=== PATIENT | female | born 2000 | race Caucasian/White ===

== ENCOUNTER 2021-07-25 15:23 | Emergency (ER) | payer SELFPAY ==
[2021-07-25 16:36] VITALS: BMI 20.2
[2021-07-25 22:19] VITALS: BP 105/61; PULSE 98; TEMP 100.8
== END 2021-07-25 21:28 | disposition home or self-care (01) ==
LOC: JER 15:23
DX: B34.9 Viral infection, unspecified (principal)
CPT/HCPCS: 71046-TC-FY; 87804; 87807; 99284-25; C9803; U0003; U0005

== ENCOUNTER 2021-11-02 10:52 | Emergency (ER) | payer OTHER ==
[2021-11-02 11:08] VITALS: BP 105/68; PULSE 67; TEMP 97.9; BMI 35.5
[2021-11-02 12:45] LABS: HEMATOCRIT 39.3 % (32.4-45.2); HEMOGLOBIN 13.3 GM/dL (10.7-15.3); MCH 29.9 pg (25.7-33.7); MCHC 33.8 g/dl (32.0-36.0); MEAN CELL VOLUME 88.5 fl (80-96); MEAN PLT VOLUME 7.7 fl (7.5-11.1); PLATELET COUNT 424 10^3/uL (134-434); RBC 4.44 M/mm3 (3.60-5.2); RDW 13.4 % (11.6-15.6); WHITE BLOOD COUNT 8.2 K/mm3 (4.0-10.0)
[2021-11-02 12:47] LABS: URINE APPEARANCE CLEAR; URINE BILIRUBIN NEGATIVE (NEGATIVE); URINE COLOR YELLOW; URINE GLUCOSE (UA) NEGATIVE (NEGATIVE); URINE KETONE TRACE (NEGATIVE); URINE LEUK ESTERASE NEGATIVE (NEGATIVE); URINE NITRITE NEGATIVE (NEGATIVE); URINE PROTEIN NEGATIVE (NEGATIVE); URINE UROBILINOGEN 0.2 mg/dL (0.2-1.0)
[2021-11-02 13:05] LABS: CALCIUM 9.1 mg/dL (8.5-10.1)
[2021-11-02 13:06] LABS: ALBUMIN 3.8 g/dl (3.4-5.0); BLOOD UREA NITROGEN 7.4 mg/dL (7-18)
[2021-11-02 13:09] LABS: CREATININE 0.6 mg/dL (0.55-1.3)
[2021-11-02 13:10] LABS: BILIRUBIN,TOTAL 0.5 mg/dL (0.2-1); TOT PROT 7.9 g/dl (6.4-8.2)
== END 2021-11-02 17:18 | disposition home or self-care (01) ==
LOC: JER 10:52 → JERFT 10:52
DX: O20.0 Threatened abortion (principal); O26.891 Other specified pregnancy related conditions, first trimester; Z3A.01 Less than 8 weeks gestation of pregnancy
CPT/HCPCS: 36415; 76817-TC; 80053; 81003; 84702; 85027; 86850; 86900; 86901; 87086; 99284-25

== ENCOUNTER 2022-02-05 00:36 | Emergency (ER) | payer OTHER ==
[2022-02-05 00:57] VITALS: BP 97/62; PULSE 82; TEMP 98.3; BMI 31.2
[2022-02-05] MEDS ORDERED: LIDOCAINE 5% TOPICAL PATCH TP ONE (02:15)
[2022-02-05] MEDS ORDERED: LIDOCAINE 5% TOPICAL PATCH ONE (02:18)
[2022-02-05 02:45] LABS: BASO % 0.3 % (0-2.0); EOS % 0.3 % (0-4.5); HEMATOCRIT 34.2 % (32.4-45.2); HEMOGLOBIN 11.9 GM/dL (10.7-15.3); MCH 30.6 pg (25.7-33.7); MCHC 34.9 g/dl (32.0-36.0); MEAN CELL VOLUME 87.7 fl (80-96); MEAN PLT VOLUME 8.2 fl (7.5-11.1); MONO % 7.9 % (3.8-10.2); NEUT % 77.5 % (42.8-82.8); PLATELET COUNT 374 10^3/uL (134-434); RBC 3.89 M/mm3 (3.60-5.2); RDW 13.8 % (11.6-15.6); WHITE BLOOD COUNT 9.7 K/mm3 (4.0-10.0)
[2022-02-05 03:07] LABS: BLOOD UREA NITROGEN 4.5 mg/dL (7-18)
[2022-02-05 03:10] LABS: CREATININE 0.5 mg/dL (0.55-1.3)
[2022-02-05 03:12] LABS: BILIRUBIN,TOTAL 0.9 mg/dL (0.2-1); TOT PROT 6.8 g/dl (6.4-8.2)
[2022-02-05 04:45] LABS: PH,URINE 7.5 (5.0-8.0); URINE APPEARANCE CLOUDY; URINE BILIRUBIN NEGATIVE (NEGATIVE); URINE COLOR DK YELLOW; URINE GLUCOSE (UA) NEGATIVE (NEGATIVE); URINE KETONE NEGATIVE (NEGATIVE); URINE LEUK ESTERASE NEGATIVE (NEGATIVE); URINE NITRITE NEGATIVE (NEGATIVE); URINE PROTEIN NEGATIVE (NEGATIVE)
[2022-02-05] MEDS ORDERED: LIDOCAINE PATCH REMOVAL MC SCH (22:00)
== END 2022-02-05 05:19 | disposition home or self-care (01) ==
LOC: JER 00:36
DX: R10.9 Unspecified abdominal pain (principal)
CPT/HCPCS: 36415; 76705-TC; 76801-TC; 80053; 81003; 83690; 85025; 87086; 99284-25

== ENCOUNTER 2022-05-26 03:25 | Inpatient (IN) | payer OTHER ==
[2022-05-26] MEDS ORDERED: AMPICILLIN SODIUM 2 GM VIAL ONE (04:01)
[2022-05-26] MEDS ORDERED: CITRIC ACID/SODIUM CITRATE 30 ML UNIT-DOSE CUP PO ONE (04:04)
[2022-05-26] MEDS ORDERED: ELECTROLYTE-148 SOLN 500 ML IV ONE (04:04)
[2022-05-26] MEDS ORDERED: AMPICILLIN - 2 GM in SODIUM CHLORIDE 100 ML IVPB ONE (04:15)
[2022-05-26] MEDS ORDERED: OXYTOCIN 30 UNITS in 0.9% NS 30 UNIT/500 ML INFUS.BAG IVPB ONE (04:38)
[2022-05-26] MEDS ORDERED: ceFAZolin SODIUM 1 GM VIAL ONE (04:41)
[2022-05-26] MEDS ORDERED: KETOROLAC TROMETHAMINE 30 MG/1 ML VIAL ONE (04:41)
[2022-05-26] MEDS ORDERED: ONDANSETRON 4 MG/2 ML VIAL ONE (04:41)
[2022-05-26] MEDS ORDERED: DEXAMETHASONE SOD PHOSPHATE 4 MG/1 ML VIAL ONE (04:41)
[2022-05-26] MEDS ORDERED: morphine SULFATE (PF) 1 MG/2 ML SYRINGE ONE (04:41)
[2022-05-26 04:48] LABS: BASO % 0.7 % (0-2.0); EOS % 0.3 % (0-4.5); HEMATOCRIT 37.7 % (32.4-45.2); HEMOGLOBIN 12.9 GM/dL (10.7-15.3); LYMPH % 21.6 % (8-40); MCH 29.8 pg (25.7-33.7); MCHC 34.1 g/dl (32.0-36.0); MEAN CELL VOLUME 87.3 fl (80-96); MEAN PLT VOLUME 10.2 fl (7.5-11.1); MONO % 6.9 % (3.8-10.2); NEUT % 70.5 % (42.8-82.8); PLATELET COUNT 242 10^3/uL (134-434); RBC 4.32 M/mm3 (3.60-5.2); RDW 13.8 % (11.6-15.6); WHITE BLOOD COUNT 12.4 K/mm3 (4.0-10.0)
[2022-05-26 04:49] LABS: INR 0.91 (0.83-1.09); PROTHROMBIN TIME (PATIENT) 10.4 SEC (9.7-13.0)
[2022-05-26 04:52] LABS: ACTIVATED PTT 32.3 SECONDS (25.2-36.5)
[2022-05-26] MEDS ORDERED: ACETAMINOPHEN 325 MG TABLET (FP) PO PRN (04:55)
[2022-05-26] MEDS ORDERED: ONDANSETRON 4 MG/2 ML VIAL IVPUSH PRN (04:55)
[2022-05-26 05:01] LABS: BLOOD UREA NITROGEN 7.9 mg/dL (7-18)
[2022-05-26 05:04] LABS: CREATININE 0.8 mg/dL (0.55-1.3)
[2022-05-26] MEDS ORDERED: OXYTOCIN 10 UNITS/ML VIAL ONE ×3 (05:23→05:24)
[2022-05-26 06:11] VITALS: BMI 43.7
[2022-05-26] MEDS ORDERED: OXYTOCIN 20 UNITS in 0.9% NS 20 UNIT/1,000 ML INFUS.BAG IV ONE (06:32)
[2022-05-26] MEDS: OXYTOCIN 20 UNITS in 0.9% NS 20 UNIT/1,000 ML INFUS.BAG IV SCH ×2 (06:35→15:16)
[2022-05-26] MEDS ORDERED: METHYLERGONOVINE MALEATE 0.2 MG/1 ML AMP IM PRN (06:55)
[2022-05-26] MEDS: ELECTROLYTE-148 SOLN 1,000 ML IV SCH (06:57)
[2022-05-26] MEDS ORDERED: IBUPROFEN 800 MG/8 ML IJ IVPB PRN (06:59)
[2022-05-26 07:53] LABS: CORD BASE EXCESS -3.1 mmol/L (0-2); CORD HCO3 24.4 mmHg (20-29); CORD PCO2 52.9 mmHg (30-78); CORD pH 7.281 (7.14-7.44)
[2022-05-26 07:55] LABS: CORD HCO3 23.6 mmHg (20-29); CORD pH 7.235 (7.14-7.44)
[2022-05-26 12:39] LABS: HIV INTERPRETATION NEGATIVE (NEGATIVE)
[2022-05-26] MEDS: CEFAZOLIN 1 GM in DEXTROSE 5%-WATER - 50 ML IVPB SCH ×2 (14:01→17:55)
[2022-05-26] MEDS ORDERED: oxyCODONE HCL 5 MG TABLET PO PRN ×2 (18:55)
[2022-05-26] MEDS: ENOXAPARIN NA (PORCINE) 40 MG/0.4 ML DISP.SYRIN SQ SCH (21:13)
[2022-05-27] MEDS: CEFAZOLIN 1 GM in DEXTROSE 5%-WATER - 50 ML IVPB SCH ×3 (01:10→18:34)
[2022-05-27] MEDS: ELECTROLYTE-148 SOLN 1,000 ML IV SCH (05:20)
[2022-05-27] MEDS ORDERED: BISACODYL 10 MG SUPP.RECT RC PRN (06:55)
[2022-05-27] MEDS: FERROUS SO4 325 MG TABLET (FP) PO SCH ×2 (09:38→22:54)
[2022-05-27] MEDS: ENOXAPARIN NA (PORCINE) 40 MG/0.4 ML DISP.SYRIN SQ SCH (09:38)
[2022-05-27] MEDS: PRENATAL VITAMINS W/ FOLIC ACID TABLET (FP) PO SCH (09:38)
[2022-05-27 10:14] LABS: BASO % 0.4 % (0-2.0); EOS % 0.4 % (0-4.5); HEMATOCRIT 35.1 % (32.4-45.2); HEMOGLOBIN 11.7 GM/dL (10.7-15.3); LYMPH % 18.1 % (8-40); MCH 29.1 pg (25.7-33.7); MCHC 33.2 g/dl (32.0-36.0); MEAN CELL VOLUME 87.8 fl (80-96); MEAN PLT VOLUME 10.1 fl (7.5-11.1); MONO % 5.1 % (3.8-10.2); PLATELET COUNT 222 10^3/uL (134-434); RDW 14.2 % (11.6-15.6); WHITE BLOOD COUNT 11.3 K/mm3 (4.0-10.0)
[2022-05-27] MEDS: IBUPROFEN 600 MG TABLET (FP) PO PRN ×2 (16:08→22:54)
[2022-05-27] MEDS: OXYTOCIN 20 UNITS in 0.9% NS 20 UNIT/1,000 ML INFUS.BAG IV SCH (21:16)
[2022-05-27] MEDS: SIMETHICONE 80 MG TAB.CHEW (FP) PO PRN (22:54)
[2022-05-27] MEDS: SENNOSIDES/DOCUSATE COMBO (SENNA PLUS) TABLET (UD) PO PRN (22:54)
[2022-05-28] MEDS: IBUPROFEN 600 MG TABLET (FP) PO PRN ×3 (09:18→21:36)
[2022-05-28] MEDS: ENOXAPARIN NA (PORCINE) 40 MG/0.4 ML DISP.SYRIN SQ SCH (09:18)
[2022-05-28] MEDS: PRENATAL VITAMINS W/ FOLIC ACID TABLET (FP) PO SCH (09:19)
[2022-05-28] MEDS: FERROUS SO4 325 MG TABLET (FP) PO SCH ×2 (09:28→21:36)
[2022-05-28] MEDS: SIMETHICONE 80 MG TAB.CHEW (FP) PO PRN ×2 (15:55→21:37)
[2022-05-28] MEDS: LABETALOL HCL 200 MG TABLET (FP) PO SCH ×2 (16:26→21:36)
[2022-05-28 18:19] LABS: ALBUMIN 1.8 g/dl (3.4-5.0); BLOOD UREA NITROGEN 11.2 mg/dL (7-18); CALCIUM 8.7 mg/dL (8.5-10.1)
[2022-05-28 18:22] LABS: CREATININE 0.6 mg/dL (0.55-1.3)
[2022-05-28 18:24] LABS: BILIRUBIN,TOTAL 0.3 mg/dL (0.2-1); TOT PROT 5.4 g/dl (6.4-8.2)
[2022-05-29] MEDS: IBUPROFEN 600 MG TABLET (FP) PO PRN ×2 (05:17→21:19)
[2022-05-29] MEDS: SIMETHICONE 80 MG TAB.CHEW (FP) PO PRN ×2 (05:17→20:34)
[2022-05-29 08:09] LABS: BASO % 0.5 % (0-2.0); EOS % 4.3 % (0-4.5); HEMATOCRIT 32.9 % (32.4-45.2); HEMOGLOBIN 10.9 GM/dL (10.7-15.3); LYMPH % 21.8 % (8-40); MCH 29.5 pg (25.7-33.7); MCHC 33.3 g/dl (32.0-36.0); MEAN CELL VOLUME 88.8 fl (80-96); MEAN PLT VOLUME 8.7 fl (7.5-11.1); NEUT % 67.4 % (42.8-82.8); PLATELET COUNT 312 10^3/uL (134-434); RDW 14.6 % (11.6-15.6); WHITE BLOOD COUNT 11.2 K/mm3 (4.0-10.0)
[2022-05-29] MEDS: ACETAMINOPHEN 325 MG TABLET (FP) PO PRN ×2 (08:10→20:30)
[2022-05-29] MEDS: LABETALOL HCL 100 MG TABLET (FP) PO SCH ×2 (09:44→21:13)
[2022-05-29] MEDS: FERROUS SO4 325 MG TABLET (FP) PO SCH ×2 (09:45→21:13)
[2022-05-29] MEDS: ENOXAPARIN NA (PORCINE) 40 MG/0.4 ML DISP.SYRIN SQ SCH (09:45)
[2022-05-29] MEDS: PRENATAL VITAMINS W/ FOLIC ACID TABLET (FP) PO SCH (09:45)
[2022-05-29] MEDS: SENNOSIDES/DOCUSATE COMBO (SENNA PLUS) TABLET (UD) PO PRN (20:34)
[2022-05-30] MEDS: PRENATAL VITAMINS W/ FOLIC ACID TABLET (FP) PO SCH (09:05)
[2022-05-30] MEDS: SIMETHICONE 80 MG TAB.CHEW (FP) PO PRN (09:05)
[2022-05-30] MEDS: ENOXAPARIN NA (PORCINE) 40 MG/0.4 ML DISP.SYRIN SQ SCH (09:05)
[2022-05-30] MEDS: LABETALOL HCL 100 MG TABLET (FP) PO SCH (09:06)
[2022-05-30] MEDS: ACETAMINOPHEN 325 MG TABLET (FP) PO PRN (09:06)
[2022-05-30] MEDS: FERROUS SO4 325 MG TABLET (FP) PO SCH (09:07)
[2022-05-30 09:10] VITALS: BP 141/93; PULSE 82; RESP 18; TEMP 98.6
== END 2022-05-30 13:05 | disposition home or self-care (01) | DRG 540 ==
LOC: JDEL 03:25 → JLDR 03:50 → J3W 08:35
PROVIDERS: ADMIT Obstetrics & Gynecology; ATTEND Obstetrics & Gynecology
PROC: 10D00Z1 Extraction of Products of Conception, Low, Open Approach (ICD-10-PCS; principal; 2022-05-26)
DX: O60.14X0 Preterm labor third trimester with preterm delivery third trimester, not applicable or unspecified (principal); O99.214 Obesity complicating childbirth; E66.01 Morbid (severe) obesity due to excess calories; Z3A.36 36 weeks gestation of pregnancy; Z37.0 Single live birth
CPT/HCPCS: 36415; 36600; 59025; 80048; 80053; 82803; 85025; 85610; 85730; 86780; 86850; 86900; 86901; 87389; 88307-TC; C9803-CS; U0003; U0005

== ENCOUNTER 2022-06-03 23:57 | Emergency (ER) | payer OTHER ==
[2022-06-04 00:20] VITALS: BP 144/93; PULSE 80; RESP 17; TEMP 98.4; BMI 41.4
[2022-06-04 01:39] LABS: EPI CELLS >36 /uL (0-25.1); HYALINE CASTS 1 /uL (0-3.1); PH,URINE 6.5 (5.0-8.0); URINE APPEARANCE CLOUDY; URINE BACTERIA 1667 /uL (0-1359); URINE BILIRUBIN NEGATIVE (NEGATIVE); URINE COLOR YELLOW; URINE GLUCOSE (UA) NEGATIVE (NEGATIVE); URINE KETONE TRACE (NEGATIVE); URINE LEUK ESTERASE 1+ (NEGATIVE); URINE NITRITE NEGATIVE (NEGATIVE); URINE PROTEIN 2+ (NEGATIVE); URINE RBC 41 /uL (0-23.9); URINE WBC 286 /uL (0-25.8)
== END 2022-06-04 02:15 | disposition home or self-care (01) ==
LOC: JER 23:57
DX: R30.0 Dysuria (principal); Z48.01 Encounter for change or removal of surgical wound dressing
CPT/HCPCS: 81003; 87086; 99283-25